=== PATIENT | female | born 1970 | race Caucasian/White ===

== ENCOUNTER 2018-12-05 23:25 | Emergency (ER) | payer OTHER ==
[~2018-12-05] VITALS: Ht 180.3 cm; Wt 136.1 kg
[2018-12-05] MEDS ORDERED: METFORMIN HCL500 MG (23:39)
[2018-12-05] MEDS ORDERED: PAXIL10 MG (23:40)
[2018-12-06 00:06] LABS: URINE BILIRUBIN NEGATIVE (Negative); URINE BLOOD NEGATIVE (Negative); URINE CLARITY CLEAR; URINE COLOR YELLOW; URINE GLUCOSE-RANDOM TRACE (Negative); URINE KETONES TRACE (Negative); URINE LEUKOCYTES-REFLEX TRACE (Negative); URINE NITRITE-REFLEX NEGATIVE (Negative); URINE PROTEIN NEGATIVE (Negative); URINE SPECIFIC GRAVITY >= 1.030 (1.005-1.030); URINE UROBILINOGEN 0.2 E.U./dl (0.2-1.0)
[2018-12-06 00:17] LABS: CASTS None Seen /LPF (None Seen); SQUAMOUS >10 Many /LPF (0-3)
[2018-12-06 00:18] LABS: BACTERIA-REFLEX 1-9 Few /HPF (None Seen); URINE RBC 0-2 Rare /HPF (0-2); URINE WBC-REFLEX 6-15 Few /HPF (0-5)
[2018-12-06 00:19] LABS: CALCIUM OXALATE 4-10 Moderate /LPF (None Seen)
[2018-12-06] MEDS ORDERED: FLEXERIL PO (01:34)
[2018-12-06] MEDS ORDERED: MEDROLDOSEPACK PO (01:34)
[2018-12-06] MEDS ORDERED: ACETAMINOPHEN-1 EAC1 PO (01:34)
[2018-12-06 02:00] VITALS: BP 140/65
== END 2018-12-06 02:00 | disposition home or self-care (01) ==
LOC: M.ERS 23:25
PROVIDERS: Emergency Medicine
DX: M54.16 Radiculopathy, lumbar region (principal); Z88.8 Allergy status to other drugs, medicaments and biological substances; Z88.1 Allergy status to other antibiotic agents

== ENCOUNTER 2020-05-28 22:46 | Emergency (ER) | payer OTHER ==
[~2020-05-28] VITALS: Ht 180.3 cm; Wt 149.2 kg
[~2020-05-28 22:46] MED LIST: ACETAMINOPHEN-1 EAC1 PO; FLEXERIL PO; MEDROLDOSEPACK PO; METFORMIN HCL500 MG; PAXIL10 MG
[2020-05-28] MEDS ORDERED: HYDROCHLOROTHIA25 M2 PO (23:19)
[2020-05-29 00:06] LABS: URINE BILIRUBIN NEGATIVE (Negative); URINE BLOOD NEGATIVE (Negative); URINE CLARITY CLEAR; URINE COLOR YELLOW; URINE GLUCOSE-RANDOM NEGATIVE (Negative); URINE KETONES NEGATIVE (Negative); URINE LEUKOCYTES-REFLEX NEGATIVE (Negative); URINE NITRITE-REFLEX NEGATIVE (Negative); URINE PROTEIN NEGATIVE (Negative); URINE SPECIFIC GRAVITY >= 1.030 (1.005-1.030); URINE UROBILINOGEN 0.2 E.U./dl (0.2-1.0)
[2020-05-29 00:18] LABS: ABSOLUTE BASOPHILS 0.1 thou/uL (0.0-0.2); ABSOLUTE EOSINOPHILS 0.2 thou/uL (0.0-0.7); ABSOLUTE LYMPHOCYTES 2.7 thou/uL (0.8-5.3); ABSOLUTE MONOCYTES 0.6 thou/uL (0.0-1.2); ABSOLUTE NEUTROPHILS 7.3 thou/uL (1.6-8.1); BASOPHILS 0.9 %; EOSINOPHILS 1.8 %; HEMATOCRIT 42.3 % (37.0-47.0); HEMOGLOBIN 14.8 gm/dL (12.0-15.0); LYMPHOCYTES 24.7 %; MCH 29.2 pg (26.0-34.0); MCHC 34.9 g/dL (28.0-37.0); MCV 83.6 fL (80.0-100.0); MONOCYTES 5.2 %; MPV 9.5 fl. (7.2-11.1); NUCLEATED RBCS 0 /100WBC; PLATELET COUNT* 242 thou/uL (150-400); POLYS 67.4 %; RBC 5.06 mil/uL (4.20-5.00); RDW-CV 13.6 % (10.5-14.5); WBC 10.8 thou/uL (4.0-11.0)
[2020-05-29 00:33] LABS: CALCIUM 8.8 mg/dL (8.5-10.1); POTASSIUM 3.5 mmol/L (3.5-5.1)
[2020-05-29 00:37] LABS: ALBUMIN 3.7 g/dL (3.4-5.0); TOTAL BILIRUBIN 0.4 mg/dL (<0.1-1.0); TOTAL PROTEIN 7.5 g/dL (6.4-8.2)
[2020-05-29 01:46] VITALS: BP 148/70
--- NOTE | 2020-05-29 08:24 | EKG ---
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: ANUPAMA : 1970 Requested By: Petty Barnes Order Number: [id number] MD: Rob Golden Measurements Intervals [place] Rate: 76 P: 49 RI: 164 QRS: -7 QRSD: 98 T: 7 QT: 392 QTc: 441 Interpretive Statements Sinus rhythm Low voltage, precordial leads Baseline wander in lead(s) V3 No previous ECG available for comparison Electronically Signed On 05-29-2020 8:24:13 CDT by Rob Golden [email or web address] <ELECTRONICALLY SIGNED> By: Rob Golden MD, [facility] 05/29/2024 2318 2318 Rob Golden MD, [facility] /EPI
== END 2020-05-29 01:48 | disposition home or self-care (01) ==
LOC: M.ERS 22:46
PROVIDERS: Personal Emergency Response Attendant
DX: R55 Syncope and collapse (principal); E11.649 Type 2 diabetes mellitus with hypoglycemia without coma; Z88.1 Allergy status to other antibiotic agents